=== PATIENT | female | born 1935 | race Caucasian/White ===

== ENCOUNTER 2018-01-05 11:00 | Outpatient (CLI) | payer OTHER ==
[~2018-01-05 11:00] MED LIST: A/F PAIN RELIE500 MG PO; ADVIL100 M1 PO; ALEVE220 M1 PO; AMITRIPTYLINE H10 MG PO; CALTRATE 600 W-1 TAB PO; CATAFLAM50 MG PO; CEFADROXIL500 MG PO; COREG CR10 MG PO; DEPO-MEDROL40 MG/ML IJ; EQ VISION FORM1 EACH PO; FLEXERIL10 MG PO; LIDOCAINE10 MG/1 ML IJ; METANX CAPSULE1 EACH PO; METHOCARBAMOL500 MG PO; MULTI-DAY1 TAB PO; NAPR500T14 PO; NIACIN500 MG PO; PERCOCET 5/321 UDTAB PO; SINGULAIR10 MG PO; TIZANIDINE HCL2 MG PO; TROMBONEX CAPSU1 CAP PO; VOLTAREN100 GM TP; ZANTAC150 M3 PO; ZYRTEC10 M3 PO
== END 2018-01-05 11:11 | disposition home or self-care (01) ==
LOC: NUCLEAR 11:00
DX: I87.2 Venous insufficiency (chronic) (peripheral) (principal)

== ENCOUNTER 2018-01-06 12:37 | Outpatient (CLI) | payer OTHER | END 2018-01-06 12:52 | disposition home or self-care (01) | LOC: NUCLEAR 12:37 | DX: I87.2 Venous insufficiency (chronic) (peripheral) (principal); I73.9 Peripheral vascular disease, unspecified ==

== ENCOUNTER 2018-06-14 10:36 | Outpatient (CLI) | payer OTHER ==
[~2018-06-14 10:36] MED LIST changes: +DICLOFENAC POTA50 MG PO
== END 2018-06-14 11:00 | disposition home or self-care (01) ==
LOC: NUCLEAR 10:36
DX: G45.8 Other transient cerebral ischemic attacks and related syndromes (principal)

== ENCOUNTER 2018-07-29 12:01 | Outpatient (CLI) | payer OTHER | END 2018-07-29 12:09 | disposition home or self-care (01) | LOC: RAD 12:01 | DX: M25.552 Pain in left hip (principal); M25.551 Pain in right hip ==

== ENCOUNTER 2018-10-04 10:21 | Outpatient (CLI) | payer OTHER | END 2018-10-04 10:31 | disposition home or self-care (01) | LOC: TOM 10:21 | DX: R10.84 Generalized abdominal pain (principal) | CPT/HCPCS: 74178; Q9965 ==

== ENCOUNTER 2018-11-30 08:53 | Emergency (ER) | payer OTHER ==
[~2018-11-30] VITALS: Ht 157.5 cm; Wt 59.9 kg
[2018-11-30] MEDS ORDERED: COREG CR20 MG (09:00)
== END 2018-11-30 11:09 | disposition home or self-care (01) ==
LOC: ER 08:53
DX: M51.16 Intervertebral disc disorders with radiculopathy, lumbar region (principal)

== ENCOUNTER 2018-12-29 11:35 | Outpatient (CLI) | payer OTHER ==
[~2018-12-29 11:35] MED LIST changes: +COREG CR20 MG
== END 2018-12-29 11:39 | disposition home or self-care (01) ==
LOC: MRI 11:35
DX: M51.16 Intervertebral disc disorders with radiculopathy, lumbar region (principal)
CPT/HCPCS: 72148

== ENCOUNTER 2019-01-29 12:26 | Outpatient (CLI) | payer OTHER ==
[~2019-01-29] VITALS: Ht 152.4 cm; Wt 59.0 kg
[~2019-01-29 12:26] MED LIST changes: +FLECTOR1 EACH TOP
== END 2019-01-29 12:40 | disposition home or self-care (01) ==
LOC: OFIC 805 12:26
DX: M54.2 Cervicalgia (principal); M62.830 Muscle spasm of back; H92.02 Otalgia, left ear

== ENCOUNTER 2019-02-16 08:07 | Day surgery (SDC) | payer OTHER ==
[~2019-02-16 08:07] MED LIST changes: +CARVEDILOL12.5 MG; +CARVEDILOL6.25 MG; +TROMBONEX CAPS1 EACH; +ZYRTEC10 M3
== END 2019-02-16 18:10 | disposition home or self-care (01) ==
LOC: CIR.AMB 08:07
DX: M48.061 Spinal stenosis, lumbar region without neurogenic claudication (principal)

== ENCOUNTER 2019-03-26 12:32 | Outpatient (CLI) | payer OTHER | END 2019-03-26 15:25 | disposition home or self-care (01) | LOC: TOM 12:32 | DX: M54.5 Low back pain (principal); M54.16 Radiculopathy, lumbar region ==

== ENCOUNTER 2019-06-05 07:47 | Outpatient (CLI) | payer OTHER | END 2019-06-05 07:48 | disposition home or self-care (01) | LOC: NUCLEAR 07:47 | DX: R07.89 Other chest pain (principal); R94.31 Abnormal electrocardiogram [ECG] [EKG]; R06.02 Shortness of breath | CPT/HCPCS: 78452; 93017; A9500; J0153 ==

== ENCOUNTER 2019-06-13 13:43 | Outpatient (CLI) | payer OTHER | END 2019-06-13 13:46 | disposition home or self-care (01) | LOC: NUCLEAR 13:43 | DX: M81.0 Age-related osteoporosis without current pathological fracture (principal); M48.062 Spinal stenosis, lumbar region with neurogenic claudication; M54.16 Radiculopathy, lumbar region ==

== ENCOUNTER 2019-10-22 12:39 | Outpatient (CLI) | payer OTHER | END 2019-10-22 12:42 | disposition home or self-care (01) | LOC: RAD 12:39 | DX: M48.062 Spinal stenosis, lumbar region with neurogenic claudication (principal); M54.16 Radiculopathy, lumbar region ==

== ENCOUNTER 2020-03-21 10:42 | Outpatient (CLI) | payer OTHER | END 2020-03-21 11:03 | disposition home or self-care (01) | LOC: RAD 10:42 | DX: M48.062 Spinal stenosis, lumbar region with neurogenic claudication (principal); M54.16 Radiculopathy, lumbar region; M17.0 Bilateral primary osteoarthritis of knee ==

== ENCOUNTER 2020-07-30 12:21 | Outpatient (CLI) | payer OTHER ==
[~2020-07-30 12:21] MED LIST changes: +VOLTAREN100 GM TOP
== END 2020-07-30 12:27 | disposition home or self-care (01) ==
LOC: RAD 12:21
PROVIDERS: ATTEND Orthopaedic Surgery
DX: M54.16 Radiculopathy, lumbar region (principal); M48.061 Spinal stenosis, lumbar region without neurogenic claudication

== ENCOUNTER 2020-10-06 12:40 | Outpatient (CLI) | payer OTHER | END 2020-10-06 15:24 | disposition home or self-care (01) | LOC: TOM 12:40 | PROVIDERS: ATTEND Otolaryngology Otolaryngology/Facial Plastic Surgery | DX: J32.4 Chronic pansinusitis (principal) ==

== ENCOUNTER 2020-12-30 09:08 | Outpatient (CLI) | payer OTHER | END 2020-12-30 09:12 | disposition home or self-care (01) | LOC: SONOGRAMA 09:08 | PROVIDERS: ATTEND Family Medicine | DX: R10.817 Generalized abdominal tenderness (principal) ==

== ENCOUNTER 2021-06-09 19:49 | Emergency (ER) | payer OTHER ==
[~2021-06-09] VITALS: Ht 154.9 cm; Wt 59.0 kg
== END 2021-06-09 21:38 | disposition home or self-care (01) ==
LOC: ER 19:49
DX: R60.0 Localized edema (principal)

== ENCOUNTER → 2021-06-09 | Emergency (ER) | payer OTHER ==
[~2021-06-09] VITALS: Ht 154.9 cm; Wt 59.0 kg
== END | disposition left against medical advice (07) ==
LOC: ER 09:25
DX: Z53.20 Procedure and treatment not carried out because of patient's decision for unspecified reasons (principal)

== ENCOUNTER → 2021-06-19 09:32 | Outpatient (CLI) | payer OTHER | END | disposition home or self-care (01) | LOC: NUCLEAR 09:00 | PROVIDERS: ATTEND Internal Medicine Cardiovascular Disease | DX: I87.2 Venous insufficiency (chronic) (peripheral) (principal); I82.493 Acute embolism and thrombosis of other specified deep vein of lower extremity, bilateral ==

== ENCOUNTER 2021-08-20 15:28 | Outpatient (CLI) | payer OTHER | END 2021-08-20 15:30 | disposition home or self-care (01) | LOC: PPH VACUNA 15:28 | PROVIDERS: ATTEND Emergency Medicine Pediatric Emergency Medicine | DX: Z23 Encounter for immunization (principal) ==

== ENCOUNTER 2021-10-20 12:31 | Emergency (ER) | payer OTHER ==
[~2021-10-20] VITALS: Ht 154.9 cm; Wt 59.4 kg
[2021-10-20] MEDS ORDERED: MULTI VITAMIN1 EACH PO (13:18)
== END 2021-10-20 14:49 | disposition home or self-care (01) ==
LOC: ER 12:31
DX: G89.18 Other acute postprocedural pain (principal); M54.59 Other low back pain

== ENCOUNTER 2021-12-22 12:57 | Outpatient (CLI) | payer OTHER ==
[~2021-12-22 12:57] MED LIST changes: +MULTI VITAMIN1 EACH PO
== END 2021-12-22 13:06 | disposition home or self-care (01) ==
LOC: RAD 12:57
PROVIDERS: ATTEND Physical Medicine & Rehabilitation
DX: M25.552 Pain in left hip (principal); M25.551 Pain in right hip

== ENCOUNTER 2022-02-12 08:00 | Outpatient (CLI) | payer OTHER | END 2022-02-12 08:30 | disposition home or self-care (01) | LOC: PPH VACUNA 08:00 | PROVIDERS: ATTEND Emergency Medicine Pediatric Emergency Medicine | DX: Z23 Encounter for immunization (principal) ==

== ENCOUNTER 2022-03-02 19:06 | Emergency (ER) | payer OTHER ==
[~2022-03-02] VITALS: Ht 154.9 cm; Wt 59.0 kg
[2022-03-08] MEDS ORDERED: DICLOFENAC POTA50 MG PO (11:46)
== END 2022-03-02 23:51 | disposition home or self-care (01) ==
LOC: ER 19:06
DX: S02.2XXA Fracture of nasal bones, initial encounter for closed fracture (principal); W18.30XA Fall on same level, unspecified, initial encounter; Y93.89 Activity, other specified; Y92.89 Other specified places as the place of occurrence of the external cause; Y99.9 Unspecified external cause status

== ENCOUNTER 2022-10-01 14:31 | Emergency (ER) | payer OTHER ==
[~2022-10-01] VITALS: Ht 157.5 cm; Wt 65.8 kg
[~2022-10-01 14:31] MED LIST changes: +NORFLEX100MG PO
== END 2022-10-01 19:34 | disposition home or self-care (01) ==
LOC: ER 14:31
DX: R42 Dizziness and giddiness (principal)

== ENCOUNTER 2022-10-18 08:24 | Outpatient (CLI) | payer OTHER ==
[2022-11-12] MEDS ORDERED: METAXALONE800 MG PO (12:22)
[2022-11-12] MEDS ORDERED: CELEBREX200MG PO (12:22)
== END 2022-10-18 08:25 | disposition home or self-care (01) ==
LOC: NUCLEAR 08:24
PROVIDERS: ATTEND Internal Medicine Cardiovascular Disease
DX: G45.9 Transient cerebral ischemic attack, unspecified (principal)

== ENCOUNTER 2022-10-20 08:55 | Outpatient (CLI) | payer OTHER | END 2022-10-20 08:56 | disposition home or self-care (01) | LOC: NUCLEAR 08:55 | PROVIDERS: ATTEND Internal Medicine Cardiovascular Disease | DX: G45.9 Transient cerebral ischemic attack, unspecified (principal) ==

== ENCOUNTER 2022-12-03 07:24 | Outpatient (CLI) | payer OTHER ==
[~2022-12-03 07:24] MED LIST changes: +CELEBREX200MG PO; +METAXALONE800 MG PO
== END 2022-12-03 07:27 | disposition home or self-care (01) ==
LOC: NUCLEAR 07:24
PROVIDERS: ATTEND Internal Medicine Cardiovascular Disease
DX: I25.10 Atherosclerotic heart disease of native coronary artery without angina pectoris (principal)
CPT/HCPCS: 78452; 93017; A9500

== ENCOUNTER 2023-09-01 10:26 | Outpatient (CLI) | payer OTHER ==
[~2023-09-01 10:26] MED LIST changes: +ETODOLAC300 MG PO; +NABUMETONE500 MG PO; +PREGABALIN25 MG PO
== END 2023-09-01 10:39 | disposition home or self-care (01) ==
LOC: TOM 10:26 → RX STUDY 10:26
PROVIDERS: ATTEND Internal Medicine Gastroenterology
DX: K30 Functional dyspepsia (principal)

== ENCOUNTER → 2023-12-09 | Day surgery (SDC) | payer OTHER ==
[2023-12-06 09:44] LABS: HEMATOCRIT 40.8 % (36.0-45.00); HEMOGLOBIN 13.2 g/dL (12.0-15.00); MEAN CELL VOLUME 82.3 fL (80.00-100.00); MEAN CORPUSCULAR HEMOGLOBIN 26.6 pg (27.00-32.0); MEAN CORPUSCULAR HGB CONC 32.3 g/dl (32.0-36.0); PLATELET COUNT 212 K/uL (150-450); RED BLOOD COUNT 4.96 M/uL (4.00-6.00); RED CELL DISTRIBUTION WIDTH 14.4 % (11.5-14.5)
[2023-12-06 10:15] LABS: INR 0.98; PARTIAL THROMBOPLASTIN TIME 27.3 SECONDS (22.0-34.0); PROTHROMBIN TIME 10.3 SECONDS (9.0-11.5)
[2023-12-06 10:30] LABS: ALBUMIN 3.9 gm/dL (3.4-5.0); BILIRUBIN TOTAL 0.5 mg/dL (0.3-1.2); CALCIUM 9.6 mg/dL (8.5-10.1); CREATININE SERUM 0.78 mg/dL (0.55-1.02); GFR 69.7; GLOBULINA 3.2 G/DL (2.4-3.5); POTASSIUM 4.21 mEq/L (3.5-5.1); TOTAL PROTEIN 7.1 gm/dL (6.4-8.2)
[2023-12-06 12:06] LABS: PH,URINE 5.5 (5.0-8.0); URINE APPEARANCE Clear; URINE BILIRRUBIN Negative (NEGATIVE); URINE BLOOD Negative; URINE COLOR Yellow; URINE GLUCOSE Negative (NEGATIVE); URINE LEUKOCYTE Trace; URINE NITRATE Positive; URINE PROTEIN Negative (NEGATIVE); URINE UROBILINOGEN 0.2 E.U./dl
[2023-12-06 12:10] LABS: URINE EPITHELIAL CELLS 3.5 uL (0.0-38.8); URINE WBC 51.3 uL (0.0-23.2)
[2023-12-06 12:45] LABS: URINE BACTERIA > 9821.5 uL (0.0-1933); URINE RBC 1.1 uL (0.0-20.8)
== END | disposition home or self-care (01) ==
LOC: ADM 12-06 15:00 → CIR.AMB 12-06 15:00
PROVIDERS: ATTEND Surgery
DX: D05.11 Intraductal carcinoma in situ of right breast (principal); Z20.822 Contact with and (suspected) exposure to COVID-19; I10 Essential (primary) hypertension
CPT/HCPCS: 19301; 19281; L8699

== ENCOUNTER 2024-10-01 10:45 | Outpatient (CLI) | payer OTHER | END 2024-10-01 10:51 | disposition home or self-care (01) | LOC: TOM 10:45 | PROVIDERS: ATTEND Allergy & Immunology Allergy | DX: H65.20 Chronic serous otitis media, unspecified ear (principal); J30.89 Other allergic rhinitis; H10.45 Other chronic allergic conjunctivitis; J30.0 Vasomotor rhinitis ==

== ENCOUNTER 2025-03-13 11:07 | Outpatient (CLI) | payer OTHER | END 2025-03-13 11:12 | disposition home or self-care (01) | LOC: SONOGRAMA 11:07 | PROVIDERS: ATTEND Anesthesiology Pain Medicine | DX: M25.511 Pain in right shoulder (principal); M25.512 Pain in left shoulder ==